=== PATIENT | male | born 1945 | race Caucasian/White ===

== ENCOUNTER 2020-01-12 11:52 | Outpatient (REF) | payer MEDICARE, SELFPAY ==
[2020-01-12 13:04] LABS: Anion Gap 13 (12-20); Blood Urea Nitrogen 18 mg/dL (9-16); Calcium 9.7 mg/dL (8.4-10.2); Carbon Dioxide 27 mmol/L (22-29); Chloride 105 mmol/L (96-108); Estimated Glomerular Filt Rate 39; Sodium 140 mmol/L (135-145)
[2020-01-12 13:26] LABS: Vitamin D 25-OH Total 31.2 ng/mL (>30)
[2020-01-12 14:01] LABS: Creatinine Urine 51.11 mg/dL
[2020-01-12 14:08] LABS: Renal w Reflex Lab Use Only Order verified
[2020-01-12 14:15] LABS: Microalbum/Creatinine Ratio Ur 1132.8 ug/mg cr
[2020-01-13 21:22] LABS: Calcium (PTHI) 10.1 mg/dL (8.6-10.3); PTHI 90 pg/mL (14-64)
== END 2020-01-12 11:53 | disposition home or self-care (01) ==
LOC: HO.BBR 11:52
PROVIDERS: PCP Internal Medicine; Referring Provider Internal Medicine Nephrology; Visit Provider Internal Medicine
DX: D45 Polycythemia vera (principal); R80.9 Proteinuria, unspecified; R80.8 Other proteinuria; I12.9 Hypertensive chronic kidney disease with stage 1 through stage 4 chronic kidney disease, or unspecified chronic kidney disease; N18.30 Chronic kidney disease, stage 3 unspecified; E11.22 Type 2 diabetes mellitus with diabetic chronic kidney disease; E11.21 Type 2 diabetes mellitus with diabetic nephropathy
CPT/HCPCS: 80051; 82043; 82306; 82310; 82565; 83970; 84100; 84520; 85018; 99195

== ENCOUNTER 2020-03-01 11:55 | Outpatient (REF) | payer MEDICARE, SELFPAY | END 2020-03-01 11:56 | disposition home or self-care (01) | LOC: HO.BBR 11:55 | PROVIDERS: PCP Internal Medicine; Visit Provider Internal Medicine | DX: D45 Polycythemia vera (principal) | CPT/HCPCS: 36415; 85018; 99195 ==

== ENCOUNTER 2020-04-22 12:41 | Outpatient (REF) | payer MEDICARE, SELFPAY | END 2020-04-22 12:42 | disposition home or self-care (01) | LOC: HO.BBR 12:41 | PROVIDERS: Visit Provider Internal Medicine | DX: D75.1 Secondary polycythemia (principal) | CPT/HCPCS: 36415; 85014; 85018; 99195 ==

== ENCOUNTER 2020-06-22 11:53 | Outpatient (REF) | payer MEDICARE, SELFPAY | END 2020-06-22 11:54 | disposition home or self-care (01) | LOC: HO.BBR 11:53 | PROVIDERS: Visit Provider Internal Medicine | DX: D45 Polycythemia vera (principal) | CPT/HCPCS: 85018 ==

== ENCOUNTER 2020-08-12 11:20 | Outpatient (REF) | payer MEDICARE, SELFPAY | END 2020-08-12 11:21 | disposition home or self-care (01) | LOC: HO.BBR 11:20 | PROVIDERS: Visit Provider Internal Medicine | DX: D45 Polycythemia vera (principal) | CPT/HCPCS: 36415; 85018; 99195 ==

== ENCOUNTER 2020-09-27 11:55 | Outpatient (REF) | payer MEDICARE, SELFPAY | END 2020-09-27 11:56 | disposition home or self-care (01) | LOC: HO.BBR 11:55 | PROVIDERS: Visit Provider Internal Medicine | DX: D45 Polycythemia vera (principal) | CPT/HCPCS: 36415; 85018 ==

== ENCOUNTER 2020-11-22 11:51 | Outpatient (REF) | payer MEDICARE, SELFPAY | END 2020-11-22 11:52 | disposition home or self-care (01) | LOC: HO.BBR 11:51 | PROVIDERS: PCP Internal Medicine; Visit Provider Internal Medicine | DX: D45 Polycythemia vera (principal) | CPT/HCPCS: 85014; 85018; 99195 ==

== ENCOUNTER 2021-01-23 11:54 | Outpatient (REF) | payer MEDICARE, SELFPAY | END 2021-01-23 11:55 | disposition home or self-care (01) | LOC: HO.BBR 11:54 | PROVIDERS: PCP Internal Medicine; Visit Provider Internal Medicine | DX: D45 Polycythemia vera (principal) | CPT/HCPCS: 85014; 85018; 99195 ==

== ENCOUNTER 2021-03-13 12:12 | Outpatient (REF) | payer MEDICARE, SELFPAY | END 2021-03-13 12:13 | disposition home or self-care (01) | LOC: HO.BBR 12:12 | PROVIDERS: Visit Provider Internal Medicine | DX: D45 Polycythemia vera (principal) | CPT/HCPCS: 85014; 85018; 99195 ==

== ENCOUNTER 2021-05-02 12:27 | Outpatient (REF) | payer MEDICARE, SELFPAY | END 2021-05-02 12:28 | disposition home or self-care (01) | LOC: HO.BBR 12:27 | PROVIDERS: Visit Provider Internal Medicine | DX: D45 Polycythemia vera (principal) | CPT/HCPCS: 85018; 99195 ==

== ENCOUNTER 2021-06-20 11:42 | Outpatient (REF) | payer MEDICARE, SELFPAY | END 2021-06-20 11:43 | disposition home or self-care (01) | LOC: HO.BBR 11:42 | PROVIDERS: Visit Provider Internal Medicine | DX: D45 Polycythemia vera (principal) | CPT/HCPCS: 85018; 99195 ==

== ENCOUNTER 2021-10-17 11:40 | Outpatient (REF) | payer MEDICARE, SELFPAY | END 2021-10-17 11:41 | disposition home or self-care (01) | LOC: HO.BBR 11:40 | PROVIDERS: Visit Provider Internal Medicine | DX: D45 Polycythemia vera (principal) | CPT/HCPCS: 85018; 99195 ==

== ENCOUNTER 2022-01-16 11:34 | Outpatient (REF) | payer MEDICARE, SELFPAY | END 2022-01-16 11:35 | disposition home or self-care (01) | LOC: HO.BBR 11:34 | PROVIDERS: Visit Provider Internal Medicine | DX: D45 Polycythemia vera (principal) | CPT/HCPCS: 85014; 85018; 99195 ==

== ENCOUNTER 2022-04-16 10:08 | Outpatient (REF) | payer MEDICARE, SELFPAY ==
[2022-04-16 12:45] LABS: Anion Gap 12 (12-20); Blood Urea Nitrogen 23 mg/dL (9-16); Calcium 10.1 mg/dL (8.4-10.2); Carbon Dioxide 29 mmol/L (22-29); Chloride 105 mmol/L (96-108); Estimated Glomerular Filt Rate 46; Glucose Random 65 mg/dL (60-115); Potassium 4.1 mmol/L (3.3-5.1); Sodium 142 mmol/L (135-145)
== END 2022-04-16 10:09 | disposition home or self-care (01) ==
LOC: HO.HMGCLDS 10:08
PROVIDERS: PCP Internal Medicine; Visit Provider Internal Medicine Nephrology
DX: N18.9 Chronic kidney disease, unspecified (principal)
CPT/HCPCS: 36415; 80048

== ENCOUNTER 2022-04-18 12:46 | Outpatient (REF) | payer MEDICARE, SELFPAY | END 2022-04-18 12:47 | disposition home or self-care (01) | LOC: HO.BBR 12:46 | PROVIDERS: PCP Internal Medicine; Visit Provider Internal Medicine | DX: D45 Polycythemia vera (principal) | CPT/HCPCS: 85018 ==